=== PATIENT | female | born 1980 | race American Indian/Alaskan Native ===

== ENCOUNTER 2019-11-26 23:48 | Inpatient (IN) | payer MEDICAID, OTHER ==
--- NOTE | 2019-11-27 00:39 | Emergency Department Report ---
ED Neuro Deficit HPI - General Chief Complaint: Dizziness Stated Complaint: HEADACHE, DIZZY, ELEVATED BLOOD PRESSURE Time Seen by Provider: 11/26/19 23:53 Source: EMS Mode of arrival: Ambulatory Limitations: No Limitations - History of Present Illness Initial Comments: [facility] Date of Service: 11/27/2019 00:07:03 Impression: RO Acute Ischemic Stroke Right Hemispheric Infarct Comments: The patient has a markedly elevated blood pressure with ISIDRO and left sided numbness hypertensive emergency vs cva/tia. Has some CP also on the side. her symptoms have been present for over 24 hours in terms of last known normal so she is not a candidate for any sort of acute intervention but certainly needs admission for stroke workup and neurology consultation. Mechanism of Stroke: Small Vessel Disease Not Clear Metrics: Last Known Well: 11/25/2019 23:00:00 [facility] Notification Time: 11/27/2019 00:06:16 Arrival Time: 11/27/2019 23:48:00 Stamp Time: 11/27/2019 00:07:03 Time First Login Attempt: 11/27/2019 00:09:15 Video Start Time: 11/27/2019 00:09:15 Symptoms: left sided numbness NIHSS Start Assessment Time: 11/27/2019 00:19:53 Patient is not a candidate for tPA. Patient was not deemed candidate for tPA thrombolytics because of Last Well Known Above 4.5 Hours. Video End Time: 11/27/2019 00:33:57 CT head showed no acute hemorrhage or acute core infarct. Advanced imaging was not obtained as the presentation was not suggestive of Large Vessel Occlusive Disease. ER Physician notified of the decision on thrombolytics management on 11/27/2019 00:31:37 Our recommendations are outlined below. Recommendations: Activate Stroke Protocol Admission/Order Set Stroke/Telemetry Floor Neuro Checks Bedside Swallow Eval DVT Prophylaxis IV Fluids, Normal Saline Head of Bed Below 30 Degrees Euglycemia and Avoid Hyperthermia (PRN Acetaminophen) Initiate Aspirin 325 MG Daily Recommended Scan: MRI Head MRA Head Without Contrast Carotid Dopplers Echocardiogram - Transthoracic Echocardiogram Lipid Panel to Be Obtained, if Not Done in the Last Three Months Therapies: Physical Therapy, Occupational Therapy, Speech Therapy Assessment When Applicable Dysphaghia Screen: Swallow Evaluation, Bedside NPO Until Swallow Evaluation DVT prophylaxis: Choice of Primary Team Disposition: Follow up with Teleneurology Follow up Sign Out: Discussed with Emergency Department Provider History of Present Illness: Patient is a 39 year old Female. Patient was brought by EMS for symptoms of left sided numbness She even when she wokr up this am she felt like she was numb on the left side also. That was at 06:30 am. She went to bed at 23:00 without any of that. She said her left side was numb with HTN. Also has DM. Had a ISIDRO. Earlier in the day she had a ISIDRO. She said she stood up at [employer] and felt like everything went black for a min no LOC/dazed. At 18:30 the ISIDRO intensified with fatigue. She had some memory issues/foggy thinking around 10am to11am. She was having to make people repeat herself. She also said he fell several times on thanksgiving then also a week or two ago. CT head showed no acute hemorrhage or acute core infarct. Last seen normal was within 4.5 hours. There is no history of hemorrhagic complications or intracranial hemorrhage. There is no history of Recent Anticoagulants. There is no history of recent major surgery. There is no history of recent stroke. Examination: 1A: Level of Consciousness - Alert; keenly responsive + 0 1B: Ask Month and Age - Both Questions Right + 0 1C: Blink Eyes & Squeeze Hands - Performs Both Tasks + 0 2: Test Horizontal Extraocular Movements - Normal + 0 3: Test Visual Oh - No Visual Loss + 0 4: Test Facial Palsy (Use Grimace if Obtunded) - Normal symmetry + 0 5A: Test Left Arm Motor Drift - Drift, but doesn't hit bed + 1 5B: Test Right Arm Motor Drift - No Drift for 10 Seconds + 0 6A: Test Left Leg Motor Drift - No Drift for 5 Seconds + 0 6B: Test Right Leg Motor Drift - No Drift for 5 Seconds + 0 7: Test Limb Ataxia (FNF/Heel-Borges) - No Ataxia + 0 8: Test Sensation - Mild-Moderate Loss: Less Sharp/More Dull + 1 9: Test Language/Aphasia - Normal; No aphasia + 0 10: Test Dysarthria - Normal + 0 11: Test Extinction/Inattention - No abnormality + 0 NIHSS Score: 2 Patient was informed the Neurology Consult would happen via TeleHealth consult by way of interactive audio and video telecommunications and consented to receiving care in this manner. Due to the immediate potential for life-threatening deterioration due to underlying acute neurologic illness, I spent 35 minutes providing critical care. This time includes time for face to face visit via telemedicine, review of medical records, imaging studies and discussion of findings with providers, the patient and/or family. Dr Marlen Miles - Related Data Home Medications: Home Medications Medication Instructions Recorded Confirmed Last Taken Empagliflozin (Nf) [Jardiance] 10 mg PO QDAY 02/05/16 02/05/16 Unknown amLODIPine 15 mg PO DAILY 02/05/16 02/05/16 Unknown Previous Rx's Medication Instructions Recorded Last Taken Type hydroCHLOROthiazide [HCTZ] 12.5 mg PO QDAY #30 capsule 02/05/16 Unknown Rx Allergies/Adverse Reactions: Allergies Allergy/AdvReac Type Severity Reaction Status Date / Time morphine Allergy Dizziness Verified 11/10/15 15:08 ED Review of Systems ROS: Stated complaint: HEADACHE, DIZZY, ELEVATED BLOOD PRESSURE Other details as noted in HPI ED Past Medical Hx - Past Medical History Previous Medical History?: Yes Hx Hypertension: Yes Hx Diabetes: Yes - Surgical History Past Surgical History?: No - Social History Smoking Status: Never Smoker Substance Use Type: None - Medications Home Medications: Home Medications Medication Instructions Recorded Confirmed Last Taken Type Empagliflozin (Nf) [Jardiance] 10 mg PO QDAY 02/05/16 02/05/16 Unknown History amLODIPine 15 mg PO DAILY 02/05/16 02/05/16 Unknown History hydroCHLOROthiazide [HCTZ] 12.5 mg PO QDAY #30 capsule 02/05/16 Unknown Rx ED Neuro Physical Exam - General Limitations: No Limitations Suspected Stroke: Yes - NIHSS Assessment Interval: Baseline 1a. Level of Consciousness: alert/keenly responsive 1b. LOC Questions: answers both correctly 1c. LOC Commands: performs tasks correctly 2. Best Gaze: normal 3. Visual: no visual loss 4. Facial Palsy: normal symmetrical movement 5b. Motor Arm Right: no drift 5a. Motor Arm Left: drift 6a. Motor Leg Left: no drift 6b. Motor Leg Right: no drift 7. Limb Ataxia: absent 8. Sensory: mild/moderate sensory loss 9. Best Language: no aphasia 10. Dysarthria: normal 11. Extinction/Inattention: no abnormality Total Score: 2 Stroke Severity: Minor Stroke ED Course Vital Signs 11/26/19 23:50 Temperature 97.9 F Pulse Rate 75 Respiratory 18 Rate Blood Pressure 177/94 O2 Sat by Pulse 100 Oximetry Critical care attestation.: If time is entered above; I have spent that time in minutes in the direct care of this critically ill patient, excluding procedure time. ED Disposition Clinical Impression: Stroke (cerebrum) Qualifiers: CVA mechanism: unspecified Qualified Code(s): I63.9 - Cerebral infarction, unspecified Disposition: DC-09 OP ADMIT IP TO THIS HOSP Is pt being admited?: Yes Condition: Stable
--- NOTE | 2019-11-27 00:45 | Cat Scan Report ---
CT head/brain wo con INDICATION: Stroke symptoms. TECHNIQUE: All CT scans at this location are performed using CT dose reduction for ALARA by means of automated e xposure control. COMPARISON: None available. FINDINGS: Paranasal and mastoid sinuses are clear. Ventricles are symmetrical and normal in size. No mass, hemo rrhage or other significant abnormality. IMPRESSION: 1. No significant abnormality. Signer Name: Armando Burns MD Signed: 11/27/2019 12:41 AM Workstation Name: [id number]
[2019-11-27] MEDS ORDERED: ASPIRIN 325 MG TAB PO ONE (00:52)
--- NOTE | 2019-11-27 00:53 | Emergency Department Report ---
ED Neuro Deficit HPI - General Chief Complaint: Dizziness Stated Complaint: HEADACHE, DIZZY, ELEVATED BLOOD PRESSURE Time Seen by Provider: 11/26/19 23:53 Source: EMS Mode of arrival: Ambulatory Limitations: No Limitations - History of Present Illness Initial Comments: 39-year-old female, history of hypertension and diabetes, presents to the ED with headache, dizziness. Patient states her headache is located in the occipital area. States it has been ongoing "for a while." States she was seen at outside hospital for elevated blood pressure approximately 1 month ago but has been unable to fill her losartan. Today, patient reports her left arm and leg have felt heavy since around 6 AM this morning. States when she went to bed last night she felt normal. Tonight, patient was in [employer], states she stood up to greet the other rastaf[employer] members began to feel dizzy and lightheaded as if she was going to pass out. Patient reports numbness and tingling in addition to a heaviness in the left arm and left leg. -: This morning Location: left arm, left leg History of same: No Severity: mild Quality: weak, numb, tingling Improves With: none Worsens With: none On Anticoagulants: No Associated Symptoms: headaches. denies: chest pain, fever/chills, nausea/vomiting, shortness of breath Treatments Prior to Arrival: none - Related Data Home Medications: Home Medications Medication Instructions Recorded Confirmed Last Taken Empagliflozin (Nf) [Jardiance] 10 mg PO QDAY 02/05/16 02/05/16 Unknown amLODIPine 15 mg PO DAILY 02/05/16 02/05/16 Unknown Previous Rx's Medication Instructions Recorded Last Taken Type hydroCHLOROthiazide [HCTZ] 12.5 mg PO QDAY #30 capsule 02/05/16 Unknown Rx Allergies/Adverse Reactions: Allergies Allergy/AdvReac Type Severity Reaction Status Date / Time morphine Allergy Dizziness Verified 11/10/15 15:08 ED Review of Systems ROS: Stated complaint: HEADACHE, DIZZY, ELEVATED BLOOD PRESSURE Other details as noted in HPI Comment: All other systems reviewed and negative Eyes: other (reports blurred vision) Respiratory: denies: shortness of breath Cardiovascular: denies: chest pain Gastrointestinal: denies: nausea, vomiting Neurological: headache, weakness, paresthesias ED Past Medical Hx - Past Medical History Previous Medical History?: Yes Hx Hypertension: Yes Hx Diabetes: Yes - Surgical History Past Surgical History?: No - Social History Smoking Status: Never Smoker Substance Use Type: None - Medications Home Medications: Home Medications Medication Instructions Recorded Confirmed Last Taken Type Empagliflozin (Nf) [Jardiance] 10 mg PO QDAY 02/05/16 02/05/16 Unknown History amLODIPine 15 mg PO DAILY 02/05/16 02/05/16 Unknown History hydroCHLOROthiazide [HCTZ] 12.5 mg PO QDAY #30 capsule 02/05/16 Unknown Rx ED Neuro Physical Exam - General Limitations: No Limitations General appearance: alert, in no apparent distress, obese Suspected Stroke: Yes - Head Head exam: Present: atraumatic, normocephalic - Eye Eye exam: Present: normal appearance, PERRL, EOMI - ENT ENT exam: Present: mucous membranes moist - Neck Neck exam: Present: normal inspection, full ROM. Absent: meningismus - Respiratory Respiratory exam: Present: normal lung sounds bilaterally. Absent: respiratory distress - Cardiovascular Cardiovascular Exam: Present: regular rate, normal rhythm - GI/Abdominal GI/Abdominal exam: Present: soft. Absent: distended, tenderness - Extremities Exam Extremities exam: Present: normal inspection - Neurological Exam Neurological exam: Present: alert, oriented X3 - NIHSS Assessment Interval: Baseline 1a. Level of Consciousness: alert/keenly responsive 1b. LOC Questions: answers both correctly 1c. LOC Commands: performs tasks correctly 2. Best Gaze: normal 3. Visual: no visual loss 4. Facial Palsy: normal symmetrical movement 5b. Motor Arm Right: no drift 5a. Motor Arm Left: drift 6a. Motor Leg Left: no drift 6b. Motor Leg Right: no drift 7. Limb Ataxia: absent 8. Sensory: mild/moderate sensory loss 9. Best Language: no aphasia 10. Dysarthria: normal 11. Extinction/Inattention: no abnormality Total Score: 2 Stroke Severity: Minor Stroke - Psychiatric Psychiatric exam: Present: normal affect, normal mood - Skin Skin exam: Present: warm, dry, intact, normal color ED Course Vital Signs 11/26/19 23:50 Temperature 97.9 F Pulse Rate 75 Respiratory 18 Rate Blood Pressure 177/94 O2 Sat by Pulse 100 Oximetry - Lab Data Result diagrams: 11/27/19 00:40 11/27/19 00:40 Lab Results 11/27/19 11/27/19 11/27/19 Range/Units 00:40 00:40 00:40 WBC 7.3 (4.5-11.0) K/mm3 RBC 4.80 (3.65-5.03) M/mm3 Hgb 10.2 (10.1-14.3) gm/dl Hct 33.0 (30.3-42.9) % MCV 69 L (79-97) fl MCH 21 L (28-32) pg MCHC 31 (30-34) % RDW 18.2 H (13.2-15.2) % Plt Count 285 (140-440) K/mm3 Lymph % (Auto) 34.1 (13.4-35.0) % [place] % (Auto) 9.0 H (0.0-7.3) % Eos % (Auto) 0.6 (0.0-4.3) % Baso % (Auto) 0.8 (0.0-1.8) % Lymph # 2.5 (1.2-5.4) K/mm3 [place] # 0.7 (0.0-0.8) K/mm3 Eos # 0.0 (0.0-0.4) K/mm3 Baso # 0.1 (0.0-0.1) K/mm3 Seg Neutrophils % 55.5 (40.0-70.0) % Seg Neutrophils # 4.1 (1.8-7.7) K/mm3 PT 12.6 (12.2-14.9) Sec. INR 0.93 (0.87-1.13) APTT 30.3 (24.2-36.6) Sec. Thrombin Time 14.6 L (15.1-19.6) Sec. Sodium 137 (137-145) mmol/L Potassium 3.6 (3.6-5.0) mmol/L Chloride 103.8 (98-107) mmol/L Carbon Dioxide 20 L (22-30) mmol/L Anion Gap 17 mmol/L BUN 14 (7-17) mg/dL Creatinine 0.7 (0.7-1.2) mg/dL Estimated GFR > 60 ml/min BUN/Creatinine Ratio 20 % Glucose 139 H (65-100) mg/dL POC Glucose (70-105) Calcium 9.2 (8.4-10.2) mg/dL Total Creatine Kinase 266 H (30-135) units/L CK-MB (CK-2) 1.6 (0.0-4.0) ng/mL CK-MB (CK-2) Rel Index 0.6 (0-4) Troponin T < 0.010 (0.00-0.029) ng/mL 11/27/19 Range/Units 00:47 WBC (4.5-11.0) K/mm3 RBC (3.65-5.03) M/mm3 Hgb (10.1-14.3) gm/dl Hct (30.3-42.9) % MCV (79-97) fl MCH (28-32) pg MCHC (30-34) % RDW (13.2-15.2) % Plt Count (140-440) K/mm3 Lymph % (Auto) (13.4-35.0) % [place] % (Auto) (0.0-7.3) % Eos % (Auto) (0.0-4.3) % Baso % (Auto) (0.0-1.8) % Lymph # (1.2-5.4) K/mm3 [place] # (0.0-0.8) K/mm3 Eos # (0.0-0.4) K/mm3 Baso # (0.0-0.1) K/mm3 Seg Neutrophils % (40.0-70.0) % Seg Neutrophils # (1.8-7.7) K/mm3 PT (12.2-14.9) Sec. INR (0.87-1.13) APTT (24.2-36.6) Sec. Thrombin Time (15.1-19.6) Sec. Sodium (137-145) mmol/L Potassium (3.6-5.0) mmol/L Chloride (98-107) mmol/L Carbon Dioxide (22-30) mmol/L Anion Gap mmol/L BUN (7-17) mg/dL Creatinine (0.7-1.2) mg/dL Estimated GFR ml/min BUN/Creatinine Ratio % Glucose (65-100) mg/dL POC Glucose 128 H (70-105) Calcium (8.4-10.2) mg/dL Total Creatine Kinase (30-135) units/L CK-MB (CK-2) (0.0-4.0) ng/mL CK-MB (CK-2) Rel Index (0-4) Troponin T (0.00-0.029) ng/mL - EKG Data -: EKG Interpreted by Me EKG shows normal: sinus rhythm, axis, intervals, QRS complexes, ST-T waves Rate: normal Interpretation: no acute changes - Radiology Data Radiology results: report reviewed, image reviewed - Medical Decision Making 39 yo F w/ uncontrolled HTN, ISIDRO, left sided "heaviness." CT Head negative. Pt seen and evaluated by teleneurologist. Symptoms onset >24 hrs ago. Not a candidate for tPA or neurointervention. Neurologist advises keeping SBP 180-190 at this time. Will admit to hospitalist for stroke workup. - Differential Diagnosis hemorrhagic CVA, ischemic CVA, complex migraine Critical care attestation.: If time is entered above; I have spent that time in minutes in the direct care of this critically ill patient, excluding procedure time. ED Disposition Clinical Impression: Uncontrolled hypertension Stroke (cerebrum) Qualifiers: CVA mechanism: unspecified Qualified Code(s): I63.9 - Cerebral infarction, unspecified Disposition: -09 OP ADMIT IP TO THIS HOSP Is pt being admited?: Yes Condition: Stable Instructions: Hypertension (ED) Referrals: PRIMARY CARE, [Primary Care Provider] - 3-5 Days Time of Disposition: 01:35
[2019-11-27 00:58] LABS: Basophils # (Auto) 0.1 K/mm3 (0.0-0.1); Basophils % (Auto) 0.8 % (0.0-1.8); Eosinophils % (Auto) 0.6 % (0.0-4.3); Hemoglobin 10.2 gm/dl (10.1-14.3); Lymphocytes # (Auto) 2.5 K/mm3 (1.2-5.4); Lymphocytes % (Auto) 34.1 % (13.4-35.0); Mean Corpuscular HGB Conc 31 % (30-34); Mean Corpuscular Volume 69 fl (79-97); Monocytes # (Auto) 0.7 K/mm3 (0.0-0.8); Platelet Count 285 K/mm3 (140-440); Red Cell Distribution Width 18.2 % (13.2-15.2)
[2019-11-27 01:01] LABS: INR 0.93 (0.87-1.13)
[2019-11-27 01:02] LABS: Partial Thromboplastin Time 30.3 Sec. (24.2-36.6); Thrombin Time 14.6 Sec. (15.1-19.6)
[2019-11-27 01:06] LABS: Creatine Kinase MB 1.6 ng/mL (0.0-4.0)
[2019-11-27 01:07] LABS: BUN/Creatinine Ratio 20; Blood Urea Nitrogen 14 mg/dL (7-17); Calcium 9.2 mg/dL (8.4-10.2); Hemolysis Index 0
[2019-11-27] MEDS: hydrALAZINE 20 MG/1 ML INJ IV PRN ×2 (02:30→05:55)
[2019-11-27] MEDS ORDERED: hydrALAZINE 20 MG/1 ML INJ ONE (05:53)
[2019-11-27] MEDS ORDERED: ACETAMINOPHEN 325 MG TAB PO PRN (06:29)
--- NOTE | 2019-11-27 07:26 | History and Physical Report ---
History of Present Illness Date of examination: 11/27/19 Date of admission: 11/27/19 02:11 Chief complaint: Headaches History of present illness: Patient is a 39-year-old woman with a history of hypertension, DM type 2 and migraines headaches who presents to [facility] ED with severe frontal constant throbbing non radiating headache associated with n/v and flashes of light and left arm heaviness that started 1 day prior to arrival. She went to [facility] service and developed headaches, dizziness, AMS with memory issues and being foggy thinking. She believes it is a typical migraine headaches and she ran out her typical Loricet that started from [facility] ED 3 weeks ago. It appears no pharmacy have the Loricet. Also she has ran out of her bp medications for approximately 1 month ago but has been unable to fill her losartan because she has no insurance anymore. She is still taking metformin 1000 mg po bid. She denies trauma, chest pains, sob, new cough, syncope, fever, chills. The is not the worse headache of her lift and her neck is NOT stiff. PMH: as hpi PSH: tonsillectomy, gallbladder removed, tubal ligation, x 3 SH: no tob, no alcholol or illicit drug use FH: mother had hypertension and stroke, father with DM ROS: Constitutional: denies: fever ENT: denies: throat or neck pain Respiratory: denies: cough, shortness of breath Cardiovascular: denies: chest pain Endocrine: denies unexplained weight loss or gain Gastrointestinal: denies: abdominal pain, nausea Genitourinary: denies: dysuria Rectal: denies no incontinence, no bleeding, no itching, no discharge Musculoskeletal: denies swelling, myaglia, + left sided muscle weakness Skin: denies: rash Neurological: +headache Hematological/Lymphatic: denies: easy bleeding or easy bruising Allergic/Immunologic: no urticaria, no allergic rhinitis, no anaphylaxis Psych: denies sadness or hopelessness, SI/HI Medications and Allergies Allergies Allergy/AdvReac Type Severity Reaction Status Date / Time morphine Allergy Dizziness Verified 11/10/15 15:08 Home Medications Medication Instructions Recorded Confirmed Last Taken Type Empagliflozin (Nf) [Jardiance] 10 mg PO QDAY 02/05/16 02/05/16 Unknown History amLODIPine 15 mg PO DAILY 02/05/16 02/05/16 Unknown History hydroCHLOROthiazide [HCTZ] 12.5 mg PO QDAY #30 capsule 02/05/16 Unknown Rx Active Meds: Active Medications Acetaminophen (Tylenol) 650 mg PO Q4H PRN PRN Reason: headache Last Admin: 11/27/19 06:41 Dose: 650 mg Documented by: Hydralazine HCl (Apresoline) 5 mg IV Q6H PRN PRN Reason: Hypertension Last Admin: 11/27/19 05:55 Dose: 5 mg Documented by: Exam - Physical Exam Narrative exam: Gen: morbid obese bmi 47.0, ill appearing with towel on forehead, leaning over trash can with Sour path candy and Nithya orange drink on her bed WDWN, NAD, Awake, Alert, Orientated x 3 HEENT: NCAT, EOMI, PERRL, OP Clear Neck: supple, no adenopathy, no thyromegaly, no JVD CVS/Heart: RRR, normal S1S2, pulses present bilaterally Chest/Lungs: tachypenic, CTA B, Symmetrical chest expansion, good air entry bilaterally GI/Abdomen: soft, NTND, good bowel sounds, no guarding or rebound /Bladder: no suprapubic tenderness, no CVA or paraspinal tenderness Extermity/Skin: no c/c/e, no obvious rash MSK: FROM x 4 Neuro: CN 2-12 grossly intact, new focal deficits, no drift Psych: calm - Constitutional Vitals: Temp Pulse Resp BP Pulse Ox 97.9 F 75 23 169/55 98 11/26/19 23:50 11/27/19 05:55 11/27/19 03:31 11/27/19 06:10 11/27/19 03:31 Results - Labs CBC & Chem 7: 11/27/19 00:40 11/27/19 00:40 Labs: Laboratory Last Values WBC 7.3 K/mm3 (4.5-11.0) 11/27/19 00:40 RBC 4.80 M/mm3 (3.65-5.03) 11/27/19 00:40 Hgb 10.2 gm/dl (10.1-14.3) 11/27/19 00:40 Hct 33.0 % (30.3-42.9) 11/27/19 00:40 MCV 69 fl (79-97) L 11/27/19 00:40 MCH 21 pg (28-32) L 11/27/19 00:40 MCHC 31 % (30-34) 11/27/19 00:40 RDW 18.2 % (13.2-15.2) H 11/27/19 00:40 Plt Count 285 K/mm3 (140-440) 11/27/19 00:40 Lymph % (Auto) 34.1 % (13.4-35.0) 11/27/19 00:40 [place] % (Auto) 9.0 % (0.0-7.3) H 11/27/19 00:40 Eos % (Auto) 0.6 % (0.0-4.3) 11/27/19 00:40 Baso % (Auto) 0.8 % (0.0-1.8) 11/27/19 00:40 Lymph # 2.5 K/mm3 (1.2-5.4) 11/27/19 00:40 [place] # 0.7 K/mm3 (0.0-0.8) 11/27/19 00:40 Eos # 0.0 K/mm3 (0.0-0.4) 11/27/19 00:40 Baso # 0.1 K/mm3 (0.0-0.1) 11/27/19 00:40 Seg Neutrophils % 55.5 % (40.0-70.0) 11/27/19 00:40 Seg Neutrophils # 4.1 K/mm3 (1.8-7.7) 11/27/19 00:40 PT 12.6 Sec. (12.2-14.9) 11/27/19 00:40 INR 0.93 (0.87-1.13) 11/27/19 00:40 APTT 30.3 Sec. (24.2-36.6) 11/27/19 00:40 Thrombin Time 14.6 Sec. (15.1-19.6) L 11/27/19 00:40 Sodium 137 mmol/L (137-145) 11/27/19 00:40 Potassium 3.6 mmol/L (3.6-5.0) 11/27/19 00:40 Chloride 103.8 mmol/L (98-107) 11/27/19 00:40 Carbon Dioxide 20 mmol/L (22-30) L 11/27/19 00:40 Anion Gap 17 mmol/L 11/27/19 00:40 BUN 14 mg/dL (7-17) 11/27/19 00:40 Creatinine 0.7 mg/dL (0.7-1.2) 11/27/19 00:40 Estimated GFR > 60 ml/min 11/27/19 00:40 BUN/Creatinine Ratio 20 % 11/27/19 00:40 Glucose 139 mg/dL (65-100) H 11/27/19 00:40 POC Glucose 128 (70-105) H 11/27/19 00:47 Calcium 9.2 mg/dL (8.4-10.2) 11/27/19 00:40 Total Creatine Kinase 266 units/L (30-135) H 11/27/19 00:40 CK-MB (CK-2) 1.6 ng/mL (0.0-4.0) 11/27/19 00:40 CK-MB (CK-2) Rel Index 0.6 (0-4) 11/27/19 00:40 Troponin T < 0.010 ng/mL (0.00-0.029) 11/27/19 00:40 HCG, Quant < 2 mIU/mL (0-4) 11/27/19 01:45 Assessment and Plan Assessment and plan: Patient is a 39-year-old woman with a history of hypertension, DM type 2 and migraines headaches who presents to [facility] ED with severe frontal constant throbbing non radiating headache associated with n/v and flashes of light and left arm heaviness that started 1 day prior to arrival. She went to [facility] service and developed headaches, dizziness, AMS with memory issues and being foggy thinking. She believes it is a typical migraine headaches and she ran out her typical Loricet that started from [facility] ED 3 weeks ago. It appears no pharmacy have the Loricet. Also she has ran out of her bp medications for approximately 1 month ago but has been unable to fill her losartan because she has no insurance anymore. She is still taking metformin 1000 mg po bid. She denies trauma, chest pains, sob, new cough, syncope, fever, chills. The is not the worse headache of her lift and her neck is NOT stiff. * CT head without contrast without acute findings Headaches, most likely Migraine related, possibly Status migrainous: treat symptomatically, NSAIDs with toradol iv x 1 Left arm weakness, she believes she slept on it wrong vs TIA vs hypertension re lated vs other: mri, echo, us carotid, mra head, treat with asa and statin Malignant hypertension; benefits counselor on compliance, restart antihypertensives, ECHO ordered, iv hydralazine prn Acute metabolic encephalopathy as above, workup on going Morbid Obesity, bmi 47: benefits counselor on compliance Type 2 DM: ssi, ada diet, restart metformin DVT ppx: sq heparin
[2019-11-27] MEDS ORDERED: ONDANSETRON 4 MG/2 ML INJ IV PRN (07:28)
[2019-11-27] MEDS ORDERED: hydrALAZINE 20 MG/1 ML INJ IV PRN (07:32)
[2019-11-27] MEDS ORDERED: hydroCHLOROthiazide 12.5 MG CAP PO SCH (10:00)
[2019-11-27] MEDS ORDERED: POLYETHYLENE GLYCOL 3350 17 GM POWDER PO PRN (10:00)
[2019-11-27] MEDS ORDERED: amLODIPine 10 MG TAB PO SCH (10:00)
[2019-11-27] MEDS ORDERED: MELATONIN 5 MG TAB PO PRN (10:15)
[2019-11-27] MEDS ORDERED: KETOROLAC 30 MG/1 ML INJ IV ONE (10:17)
[2019-11-27] MEDS ORDERED: DEXTROSE 50% IN WATER (25GM) 50 ML SYRINGE IV PRN (10:19)
[2019-11-27] MEDS: INSULIN LISPRO 100 UNIT/ML SUB-Q SCH ×3 (11:30→23:10)
[2019-11-27] MEDS: METOCLOPRAMIDE 10 MG/10 ML ORAL LIQD PO SCH ×3 (11:30→21:54)
[2019-11-27] MEDS: METOCLOPRAMIDE 10 MG/2 ML INJ IV PRN (11:31)
[2019-11-27] MEDS: FAMOTIDINE 20 MG TAB PO SCH ×2 (11:34→21:54)
[2019-11-27] MEDS: BUTALB/ACETAMINOPHEN/CAFFEINE TAB PO PRN (17:42)
[2019-11-27] MEDS: metFORMIN 500 MG TAB PO SCH (17:43)
--- NOTE | 2019-11-27 18:51 | Consultation ---
History of Present Illness Consult date: 11/27/19 Reason for Consult: left sided weakness/numbness, headache Chief complaint: left sided weakness/numbness, headache History of present illness: Patient is a 39 woman with a history of hypertension, diabetes, migraines. Yesterday morning when she woke up and around 6 AM, the patient noted that she was experiencing a headache, as well as left-sided paresthesias of the face, arm, leg, as well as left-sided weakness. She was also extrinsic dizziness at this time. She went throughout the day with the symptoms, and while at [employer] in the evening, she noted that she was having increased dizziness when standing up and having difficulty concentrating. She then came to [facility] for further evaluation. Patient states that she had run out of her antihypertensive medications about 1 month ago, and was unable to get them refilled as no pharmacy she went to had the medication available. She however was able to get metformin. She states that her usual migraines are described as one-sided, throbbing, 8-9 out of 10, associated with phonophobia and photophobia, and she has visual auras preceding migraines. On presentation to the ER, the patient was found to have elevated blood pressure. She states that today her headaches have improved significantly, however she continues to experience left-sided paresthesias and weakness. Past History Past Medical History: other (HTN, DM, migraines) Social history: no significant social history Family history: no significant family history Medications and Allergies Allergies Allergy/AdvReac Type Severity Reaction Status Date / Time morphine Allergy Dizziness Verified 11/10/15 15:08 Home Medications Medication Instructions Recorded Confirmed Last Taken Type Empagliflozin (Nf) [Jardiance] 10 mg PO QDAY 02/05/16 11/27/19 Unknown History amLODIPine 15 mg PO DAILY 02/05/16 11/27/19 Unknown History hydroCHLOROthiazide [HCTZ] 12.5 mg PO QDAY #30 capsule 02/05/16 11/27/19 Unknown Rx Active Meds: Active Medications Acetaminophen (Tylenol) 650 mg PO Q4H PRN PRN Reason: headache Last Admin: 11/27/19 06:41 Dose: 650 mg Documented by: Acetaminophen/Butalbital/Caffeine (Fioricet) 2 tab PO Q4H PRN PRN Reason: Headache Last Admin: 11/27/19 17:42 Dose: 2 tab Documented by: Acetaminophen/Hydrocodone Bitart ([place] 10/325) 1 each PO Q4H PRN PRN Reason: Pain , Severe (7-10) Aspirin (Aspirin) 325 mg PO QDAY [facility] Atorvastatin Calcium (Lipitor) 40 mg PO QHS [facility] Dextrose (D50w (25gm) Syringe) 50 ml IV Q30MIN PRN; Protocol PRN Reason: Hypoglycemia Famotidine (Pepcid) 20 mg PO BID [facility] Last Admin: 11/27/19 11:34 Dose: Not Given Documented by: Heparin Sodium (Porcine) (Heparin) 5,000 unit SUB-Q Q12HR [facility] Hydralazine HCl (Apresoline) 10 mg IV Q4HR PRN PRN Reason: Blood Pressure Insulin Human Lispro (Humalog) 0 unit SUB-Q [facility]; Protocol Last Admin: 11/27/19 18:23 Dose: Not Given Documented by: Melatonin (Melatonin) 10 mg PO QHS PRN PRN Reason: Sleep Metformin HCl (Glucophage) 1,000 mg PO BIDDIAB [facility] Last Admin: 11/27/19 17:43 Dose: 1,000 mg Documented by: Metoclopramide HCl (Reglan) 10 mg IV Q8H PRN PRN Reason: Nausea And Vomiting Last Admin: 11/27/19 11:31 Dose: 10 mg Documented by: Metoclopramide HCl (Reglan) 10 mg PO [facility] Last Admin: 11/27/19 17:46 Dose: 10 mg Documented by: Ondansetron HCl (Zofran) 4 mg IV Q8H PRN PRN Reason: N/V unrelieved by Reglan Last Admin: 11/27/19 07:52 Dose: 4 mg Documented by: Polyethylene Glycol (Miralax [id number]) 17 gm PO QDAY PRN PRN Reason: Constipation Sodium Chloride (Sodium Chloride Flush Syringe 10 Ml) 10 ml IV PRN PRN PRN Reason: LINE FLUSH Review of Systems All systems: negative Neurological: weakness, parathesias, other (dizziness) Physical Examination - Vital Signs Vital Signs: Vital Signs Temp Pulse Resp BP Pulse Ox 97.9 F 75 18 177/94 100 11/26/19 23:50 11/26/19 23:50 11/26/19 23:50 11/26/19 23:50 11/26/19 23:50 - Physical Exam Narrative exam: Patient is awake, alert, oriented 4, follows complex commands. No dysarthria or aphasia noted. PERRL, EOMI, VFF, no facial weakness noted, decreased on left to LT, tongue midline. Noted to have 4/5 strength in LUE/LLE, 5.5 in LUE/LLE. Decreased on LUE/LLE to LT. Bilaterally intact to finger to nose and heel to kendrick. 2+ reflexes throughout. - Constitutional General appearance: comfortable - EENT EENT: Present: ATNC, PERRL, mucous membranes moist, hearing intact, vision intact - Respiratory Respiratory: Present: lungs clear, normal breath sounds - Cardiovascular Cardiovascular: Present: regular rate, normal S1, normal S2 Extremities: Present: no clubbing, cyanosis, no inflammation - Gastrointestinal Gastrointestinal: Present: normoactive bowel sounds, soft, non-tender - Integumentary Integumentary: Present: normal - Musculoskeletal Musculoskeletal: Present: no fluid collection, no pain - Psychiatric Psychiatric: Present: mood/affect appropriate - Level of Consciousness 1a. Level of Consciousness: alert/keenly responsive - LOC Questions 1b. LOC Questions: answers both correctly - LOC Command 1c. LOC Commands: performs tasks correctly - Best Gaze 2. Best Gaze: normal - Visual 3. Visual: no visual loss - Facial Palsy 4. Facial Palsy: normal symmetrical movement - Motor Arm 5a. Motor Arm Left: drift 5b. Motor Arm Right: no drift - Motor Leg 6a. Motor Leg Left: drift 6b. Motor Leg Right: no drift - Limb Ataxia 7. Limb Ataxia: absent - Sensory 8. Sensory: mild/moderate sensory loss - Best Language 9. Best Language: no aphasia - Dysarthria 10. Dysarthria: normal - Extinction and Inattention 11. Extinction/Inattention: no abnormality - Scoring Total Score: 3 Stroke Severity: Minor Stroke Results - Laboratory Findings CBC and BMP: 11/27/19 00:40 11/27/19 00:40 Abnormal Lab Findings: Abnormal Labs 11/27/19 11/27/19 11/27/19 00:40 00:40 00:40 MCV 69 L MCH 21 L RDW 18.2 H [place] % (Auto) 9.0 H Thrombin Time 14.6 L Carbon Dioxide 20 L Glucose 139 H POC Glucose Total Creatine Kinase 266 H 11/27/19 11/27/19 11/27/19 00:47 12:59 16:59 MCV MCH RDW [place] % (Auto) Thrombin Time Carbon Dioxide Glucose POC Glucose 128 H 173 H 148 H Total Creatine Kinase Assessment and Plan Patient is a 39 woman with a history of hypertension, diabetes, migraines, who p/w left sided numbness/weakness, headache, dizziness. According the patient's clinical findings, it is possible the patient has had a stroke, a TIA, or alternatively may have hypertensive emergency. Alternatively, the patient may also had a complicated migraine. Plan: 1. Stroke vs. TIA vs. Hypertensive urgency vs. complicated migraine: - Check MRI head - Check MRA head/neck - Check MRI C-spine. - CT head: no acute abnormality - Cont. ASA for now. - Cont. statin for now - Cont. fioricet for migraine - PT/OT/ST - Echo: pending. - Telemetry monitoring while in house - DVT Ppx: recommend lovenox. 2. Hypertension: - Recommend BP goal of <220/120 to allow for permissive HTN. Target normotension on 11/28/18 - Will continue to follow patient. Thank you for allowing me to take part in the care of this patient. Nitesh Esquivel MD Neurology
[2019-11-28] MEDS: METOCLOPRAMIDE 10 MG/10 ML ORAL LIQD PO SCH ×4 (07:30→21:57)
[2019-11-28] MEDS: INSULIN LISPRO 100 UNIT/ML SUB-Q SCH ×4 (07:30→22:01)
[2019-11-28 08:38] LABS: Chol/HDL Ratio 2.02 %
--- NOTE | 2019-11-28 10:44 | Magnetic Resonance Report ---
MRI BRAIN WITHOUT CONTRAST INDICATION / CLINICAL INFORMATION: Left-sided numbness and weakness.. TECHNIQUE: Multiplanar, multisequence MR images of the brain were obtained. COMPARISON: None available. FINDINGS: BRAIN / INTRACRANIAL CONTENTS: No restricted diffusion to suggest acute infarct. No acute ischemia, a cute hemorrhage, mass effect, midline shift, or hydrocephalus. No chronic infarct or significant atr ophy. No significant demyelinating changes. There is mild expansion of the sella with mild flattening of the superior margin of the pituitary gland. CRANIOCERVICAL JUNCTION: No significant abnormality. VASCULAR FLOW-VOIDS: No significant abnormality. ORBITS: No significant abnormality of visualized orbits. SINUSES / MASTOIDS: No significant abnormality of visualized sinuses and mastoid air cells. ADDITIONAL FINDINGS: None. IMPRESSION: 1. No evidence of acute infarct or other acute intracranial abnormality. 2. Mild chronic expansion of the sella with flattening of the superior margin of the pituitary gland consistent with partially empty sella appearance, which can be associated with idiopathic intracrania l hypertension. Signer Name: Antonio Salguero MD Signed: 11/28/2019 10:39 AM Workstation Name: [id number]
--- NOTE | 2019-11-28 10:48 | Magnetic Resonance Report ---
MRA NECK WITHOUT CONTRAST HISTORY: Left-sided numbness and weakness COMPARISON: None. TECHNIQUE: Routine MRA of the neck is performed. 3-D/MIP reformats postprocessed. Percentage stenosi s is determined by direct quantitative measurements of distal internal carotid artery diameter compar ed with normal reference segments or by criteria similar to NASCET where applicable. CONTRAST: None. FINDINGS: Aortic arch: No significant abnormality. Cervical vertebral arteries: The right vertebral artery is a well-marginated dominant. There is no si gnificant stenosis or occlusion. Common carotid arteries: No significant abnormality. Cervical internal carotid arteries: No significant abnormality. Additional findings: None. IMPRESSION: 1. No significant stenosis or large vessel occlusion identified in the neck arteries. Signer Name: Antonio Salguero MD Signed: 11/28/2019 10:44 AM Workstation Name: [id number]
--- NOTE | 2019-11-28 11:58 | Magnetic Resonance Report ---
MRA HEAD WITHOUT CONTRAST HISTORY: Left-sided numbness and weakness COMPARISON: None. TECHNIQUE: Routine MRA of the head is performed. 3-D/MIP reformats postprocessed. CONTRAST: None. FINDINGS: Intracranial vertebral arteries: Right vertebral artery is the dominant artery. Distal vertebral ancelmo sebastian are normal. Basilar artery: Tortuous; normal lumen; basilar tip are normal Posterior cerebral arteries: Normal both posterior communicating arteries are contributing to posteri or cerebral arteries. Intracranial internal carotid arteries: Normal from skull base to terminus Anterior cerebral arteries: Both A1 segments are normal.; There may be narrowing of the proximal left A2 segment. Middle cerebral arteries: No significant abnormality. Variants and anomalies:None Additional findings: None. IMPRESSION: Questionable narrowing of the proximal left A2 segment Both A1 and M1 segments and posterior cerebral arteries are normal Signer Name: Matt Brandt MD Signed: 11/28/2019 11:54 AM Workstation Name: [id number]
[2019-11-28] MEDS: HEPARIN 5,000 UNIT/1 ML VIAL SUB-Q SCH ×2 (12:08→21:57)
[2019-11-28] MEDS: ASPIRIN 325 MG TAB PO SCH (12:08)
[2019-11-28] MEDS: FAMOTIDINE 20 MG TAB PO SCH ×2 (12:08→21:56)
[2019-11-28] MEDS: metFORMIN 500 MG TAB PO SCH ×2 (12:56→21:56)
--- NOTE | 2019-11-28 14:58 | Progress Note ---
Assessment and Plan Patient is a 39 woman with a history of hypertension, diabetes, migraines, who p/w left sided numbness/weakness, headache, dizziness. According the patient's clinical findings, it is possible the patient has had a TIA, or alternatively may have hypertensive emergency. Alternatively, the patient may also had a complicated migraine. MRI indicative of possible IIH, which would be supported with patient's symptoms of ISIDRO as well as obesity. Plan: 1. Stroke vs. TIA vs. Hypertensive urgency vs. complicated migraine: - MRI brain: no acute abnormality. Showed empty sella sign, indicative of possible idiopathic intracranial hypertension. - MRA head/neck: unremarkable - Check MRI C-spine - Pending - CT head: no acute abnormality - Cont. ASA - Cont. statin - Cont. fioricet for migraine - PT/OT/ST - Echo: EF 45-50%, LA mildly dilated, bubble study negative. - Telemetry monitoring while in house - DVT Ppx: recommend lovenox. 2. Hypertension: - Recommend target normotension. 3. Possible Idiopathic Intracranial Hypertension: - MRI brain showed empty sella sign - Patient has h/o ISIDRO and obesity - Will order LP with opening pressure. If opening pressure elevated, patient may require to be started on diamox. - Will continue to follow patient. Thank you for allowing me to take part in the care of this patient. Nitesh Esquivel MD Neurology Subjective Date of service: 11/28/19 Principal diagnosis: Hypertensive emergency Interval history: Patient c/o mild ISIDRO today. Objective - Exam Narrative Exam: Patient is awake, alert, oriented 4, follows complex commands. No dysarthria or aphasia noted. PERRL, EOMI, VFF, no facial weakness noted, decreased on left to LT, tongue midline. Noted to have 5/5 strength in LUE/LLE, 4/5 in LUE/LLE. Bilaterally intact to LT. Bilaterally intact to finger to nose and heel to kendrick. 2+ reflexes throughout. - Vital Sign Vital Signs - 12hr 11/28/19 11/28/19 05:13 11:58 Temperature 97.9 F 98.0 F Pulse Rate 70 71 Respiratory 18 18 Rate Blood Pressure 170/98 179/98 O2 Sat by Pulse 96 100 Oximetry - General Apperance Constitutional: comfortable - EENT EENT: ATNC, PERRL, mucous membranes moist, hearing intact, vision intact - Respiratory Respiratory: lungs clear, normal breath sounds - Cardiovascular Cardiovascular: regular rate, normal S1, normal S2 Extremities: no clubbing, cyanosis, no inflammation - Gastrointestinal Gastrointestinal: normoactive bowel sounds, soft, non-tender - Integumentary Integumentary: normal - Musculoskeletal Musculoskeletal: no fluid collection, no pain - Psychiatric Psychiatric: mood/affect appropriate - Laboratory Findings CBC and BMP: 11/27/19 00:40 11/27/19 00:40 Abnormal Lab Findings: Abnormal Labs 11/27/19 11/27/19 11/27/19 00:40 00:40 00:40 MCV 69 L MCH 21 L RDW 18.2 H [place] % (Auto) 9.0 H Thrombin Time 14.6 L Carbon Dioxide 20 L Glucose 139 H POC Glucose Hemoglobin A1c Total Creatine Kinase 266 H HDL Cholesterol 11/27/19 11/27/19 11/27/19 00:47 12:59 16:59 MCV MCH RDW [place] % (Auto) Thrombin Time Carbon Dioxide Glucose POC Glucose 128 H 173 H 148 H Hemoglobin A1c Total Creatine Kinase HDL Cholesterol 11/27/19 11/28/19 11/28/19 23:09 07:34 07:34 MCV MCH RDW [place] % (Auto) Thrombin Time Carbon Dioxide Glucose POC Glucose 129 H Hemoglobin A1c 7.1 H Total Creatine Kinase HDL Cholesterol 81 H 11/28/19 11/28/19 07:39 12:51 MCV MCH RDW [place] % (Auto) Thrombin Time Carbon Dioxide Glucose POC Glucose 138 H 118 H Hemoglobin A1c Total Creatine Kinase HDL Cholesterol
[2019-11-28] MEDS: BUTALB/ACETAMINOPHEN/CAFFEINE TAB PO PRN (15:34)
--- NOTE | 2019-11-28 18:45 | Progress Note ---
Assessment and Plan Assessment and plan: Patient is a 39-year-old woman with a history of hypertension, DM type 2 and migraines headaches who presents to [facility] ED with severe frontal constant throbbing non radiating headache associated with n/v and flashes of light and left arm heaviness that started 1 day prior to arrival. She went to [facility] and developed headaches, dizziness, AMS with memory issues and being foggy thinking. She believes it is a typical migraine headaches and she ran out her typical Loricet that started from [facility] ED 3 weeks ago. It appears no pharmacy have the Loricet. Also she has ran out of her bp medications for approximately 1 month ago but has been unable to fill her losartan because she has no insurance anymore. She is still taking metformin 1000 mg po bid. She denies trauma, chest pains, sob, new cough, syncope, fever, chills. The is not the worse headache of her lift and her neck is NOT stiff. * CT head without contrast without acute findings * MRI brain: empty kayley suspected Headaches, Status migrainous vs Pseudotumor Cerebri vs other: treated symptomatically, LP for opening pressure per Neurology Left arm weakness, she believes she slept on it wrong vs TIA vs hypertension related vs other: mri, echo, us carotid, mra head, all reviewed treat with asa and statin Malignant hypertension; college counselor on compliance, restart antihypertensives, ECHO 45-50%==>needs better psychology fellow bp control, iv hydralazine prn Acute metabolic encephalopathy as above, workup on going Morbid Obesity, bmi 47: college counselor on compliance Type 2 DM: ssi, ada diet, restart metformin DVT ppx: sq heparin Dispo:continue inpatient care, LP for opening pressure History Interval history: Patient was seen and examined. Follow-up on current diagnosis ISIDRO which have improved. Overnight uneventful. Patient denies any chest pain, shortness breath, Imaging, nursing note, chart, labs and old chart reviewed. Discussed with patient. Hospitalist Physical - Physical exam Narrative exam: Gen: morbid obese bmi 47.0, ill appearing with towel on forehead, leaning over trash can with Sour path candy and Nithya orange drink on her bed WDWN, NAD, Awake, Alert, Orientated x 3 HEENT: NCAT, EOMI, PERRL, OP Clear Neck: supple, no adenopathy, no thyromegaly, no JVD CVS/Heart: RRR, normal S1S2, pulses present bilaterally Chest/Lungs: tachypenic, CTA B, Symmetrical chest expansion, good air entry bilaterally GI/Abdomen: soft, NTND, good bowel sounds, no guarding or rebound /Bladder: no suprapubic tenderness, no CVA or paraspinal tenderness Extermity/Skin: no c/c/e, no obvious rash MSK: FROM x 4 Neuro: CN 2-12 grossly intact, new focal deficits, no drift Psych: calm - Constitutional Vitals: Temp Pulse Resp BP Pulse Ox 98.0 F 71 20 179/98 100 11/28/19 11:58 11/28/19 11:58 11/28/19 15:34 11/28/19 11:58 11/28/19 11:58 Results - Labs CBC & Chem 7: 11/27/19 00:40 11/27/19 00:40 Labs: Laboratory Last Values WBC 7.3 K/mm3 (4.5-11.0) 11/27/19 00:40 RBC 4.80 M/mm3 (3.65-5.03) 11/27/19 00:40 Hgb 10.2 gm/dl (10.1-14.3) 11/27/19 00:40 Hct 33.0 % (30.3-42.9) 11/27/19 00:40 MCV 69 fl (79-97) L 11/27/19 00:40 MCH 21 pg (28-32) L 11/27/19 00:40 MCHC 31 % (30-34) 11/27/19 00:40 RDW 18.2 % (13.2-15.2) H 11/27/19 00:40 Plt Count 285 K/mm3 (140-440) 11/27/19 00:40 Lymph % (Auto) 34.1 % (13.4-35.0) 11/27/19 00:40 [place] % (Auto) 9.0 % (0.0-7.3) H 11/27/19 00:40 Eos % (Auto) 0.6 % (0.0-4.3) 11/27/19 00:40 Baso % (Auto) 0.8 % (0.0-1.8) 11/27/19 00:40 Lymph # 2.5 K/mm3 (1.2-5.4) 11/27/19 00:40 [place] # 0.7 K/mm3 (0.0-0.8) 11/27/19 00:40 Eos # 0.0 K/mm3 (0.0-0.4) 11/27/19 00:40 Baso # 0.1 K/mm3 (0.0-0.1) 11/27/19 00:40 Seg Neutrophils % 55.5 % (40.0-70.0) 11/27/19 00:40 Seg Neutrophils # 4.1 K/mm3 (1.8-7.7) 11/27/19 00:40 PT 12.6 Sec. (12.2-14.9) 11/27/19 00:40 INR 0.93 (0.87-1.13) 11/27/19 00:40 APTT 30.3 Sec. (24.2-36.6) 11/27/19 00:40 Thrombin Time 14.6 Sec. (15.1-19.6) L 11/27/19 00:40 Sodium 137 mmol/L (137-145) 11/27/19 00:40 Potassium 3.6 mmol/L (3.6-5.0) 11/27/19 00:40 Chloride 103.8 mmol/L (98-107) 11/27/19 00:40 Carbon Dioxide 20 mmol/L (22-30) L 11/27/19 00:40 Anion Gap 17 mmol/L 11/27/19 00:40 BUN 14 mg/dL (7-17) 11/27/19 00:40 Creatinine 0.7 mg/dL (0.7-1.2) 11/27/19 00:40 Estimated GFR > 60 ml/min 11/27/19 00:40 BUN/Creatinine Ratio 20 % 11/27/19 00:40 Glucose 139 mg/dL (65-100) H 11/27/19 00:40 POC Glucose 117 (70-105) H 11/28/19 16:17 Hemoglobin A1c 7.1 % (4-6) H 11/28/19 07:34 Calcium 9.2 mg/dL (8.4-10.2) 11/27/19 00:40 Total Creatine Kinase 266 units/L (30-135) H 11/27/19 00:40 CK-MB (CK-2) 1.6 ng/mL (0.0-4.0) 11/27/19 00:40 CK-MB (CK-2) Rel Index 0.6 (0-4) 11/27/19 00:40 Troponin T < 0.010 ng/mL (0.00-0.029) 11/27/19 00:40 Triglycerides 60 mg/dL (2-149) 11/28/19 07:34 Cholesterol 164 mg/dL (50-199) 11/28/19 07:34 LDL Cholesterol Direct 87 mg/dL (50-130) 11/28/19 07:34 HDL Cholesterol 81 mg/dL (40-59) H 11/28/19 07:34 Cholesterol/HDL Ratio 2.02 % 11/28/19 07:34 HCG, Quant < 2 mIU/mL (0-4) 11/27/19 01:45 Active Medications - Current Medications Current Medications: Generic Name Dose Route Start Last Admin Trade Name Freq PRN Reason Stop Dose Admin Acetaminophen 650 mg 11/27/19 06:29 11/27/19 06:41 Tylenol PO 650 mg Q4H PRN Administration headache Acetaminophen/Butalbital/Caffeine 2 tab 11/27/19 10:16 11/28/19 15:34 Fioricet PO 2 tab Q4H PRN Administration Headache Acetaminophen/Hydrocodone Bitart 1 each 11/27/19 10:16 [place] 10/325 PO Q4H PRN Pain , Severe (7-10) Aspirin 325 mg 11/28/19 10:00 11/28/19 12:08 Aspirin PO 325 mg QDAY VLAIDSLAV Administration Atorvastatin Calcium 40 mg 11/27/19 22:00 11/27/19 21:54 Lipitor PO 40 mg QHS VLADISLAV Administration Dextrose 50 ml 11/27/19 10:19 D50w (25gm) Syringe IV Q30MIN PRN Hypoglycemia Protocol Famotidine 20 mg 11/27/19 10:00 11/28/19 12:08 Pepcid PO 20 mg BID VLADISLAV Administration Heparin Sodium (Porcine) 5,000 unit 11/28/19 10:00 11/28/19 12:08 Heparin SUB-Q 5,000 unit Q12HR VLADISLAV Administration Hydralazine HCl 10 mg 11/27/19 07:32 Apresoline IV Q4HR PRN Blood Pressure Insulin Human Lispro 0 unit 11/27/19 11:30 11/28/19 12:56 Humalog SUB-Q Not Given ACHS VLADISLAV Protocol Melatonin 10 mg 11/27/19 10:15 Melatonin PO QHS PRN Sleep Metformin HCl 1,000 mg 11/27/19 17:00 11/28/19 12:56 Glucophage PO 1,000 mg BIDDIAB VLADISLAV Administration Metoclopramide HCl 10 mg 11/27/19 10:15 11/27/19 11:31 Reglan IV 10 mg Q8H PRN Administration Nausea And Vomiting Metoclopramide HCl 10 mg 11/27/19 11:30 11/28/19 13:02 Reglan PO 10 mg ACHS VLADISLAV Administration Ondansetron HCl 4 mg 11/27/19 07:28 11/27/19 07:52 Zofran IV 4 mg Q8H PRN Administration N/V unrelieved by Reglan Polyethylene Glycol 17 gm 11/27/19 10:00 Miralax 3350 PO QDAY PRN Constipation Sodium Chloride 10 ml 11/27/19 07:28 Sodium Chloride Flush Syringe 10 Ml IV PRN PRN LINE FLUSH Nutrition/Malnutrition Assess - Dietary Evaluation Nutrition/Malnutrition Findings: Nutrition Notes Start: 11/27/19 13:36 Freq: Status: Active Protocol: Document 11/27/19 13:36 YAZMIN (Rec: 11/27/19 13:41 YAZMIN [email or web address]) Nutrition Notes Need for Assessment generated from: MD Order,Education Initial or Follow up Brief Note Other Pertinent Diagnosis (L) sided heaviness, ? CVA Current Diet Cardiac/Consistent CHO Height 5 ft 7 in Weight 136.078 kg [place] Body Weight (kg) 61.36 BMI 47.0 Subjective/Other Information RD consulted for NTR recommendations and diet education. Pt admitted with elevated BP. Nutrition Intervention Follow-Up By: 11/29/19 Additional Comments F/U: PO tolerance, diet education needs
[2019-11-28] MEDS: HYDROcodone/ACETAMINOPHEN 10-325MG TAB PO PRN (21:56)
[2019-11-29] MEDS: HYDROcodone/ACETAMINOPHEN 10-325MG TAB PO PRN ×2 (06:42→10:11)
[2019-11-29] MEDS: METOCLOPRAMIDE 10 MG/10 ML ORAL LIQD PO SCH ×3 (07:30→16:30)
--- NOTE | 2019-11-29 09:32 | Procedure Note ---
Date of procedure: 11/29/19 Pre-op diagnosis: increased intracranial pressure, neuro symptoms Post-op diagnosis: other (normal pressures) Procedure: flouro guided lumbar puncture Anesthesia: local Surgeon: RICK BARRIOS Estimated blood loss: none Pathology: list (4 CSF tubes) Specimen disposition: to lab Condition: stable Disposition: floor
[2019-11-29] MEDS: INSULIN LISPRO 100 UNIT/ML SUB-Q SCH ×3 (10:08→16:30)
[2019-11-29] MEDS: FAMOTIDINE 20 MG TAB PO SCH (10:10)
[2019-11-29 10:15] LABS: Appearance,CSF Clear; Red Blood Cell,CSF 11 /mm3 (0-0); White Blood Cell,CSF 2 /mm3 (1-10)
[2019-11-29 10:18] LABS: Glucose,CSF 82 mg/dL
--- NOTE | 2019-11-29 10:38 | Fluoroscopy Report ---
LUMBAR PUNCTURE INDICATION : Pseudotumor cerebri PROCEDURE: The risks (including but not limited to bleeding, infection, and spinal headache) and kimberlyn efits were explained to the patient and informed consent was obtained. A time out procedure was perf ormed. The procedure site was prepped and draped in the usual sterile fashion and lidocaine was used for local anesthesia. Under fluoroscopic guidance, a 22-gauge spinal needle was advanced into the L2-3 interlaminar space. The opening pressure was 130 mm H2O which was calculated by adding the length of the needle (9 cm) to the height of the CSF column. 4 separate collection tubes were used to obtain 1 cc each. Samples wer e sent to the lab per the ordering physician specifications for further evaluation. The patient tolerated the procedure well with no complications. IMPRESSION: Successful lumbar puncture as outlined above. Opening pressure was 130 mm H20. Fluoroscopic time: 1.3 Number of fluoroscopic images: 1 Signer Name: Eyad Ndiaye Jr, MD Signed: 11/29/2019 10:33 AM Workstation Name: [id number]
[2019-11-29 10:55] LABS: Total Cells Counted 81 /mm3
[2019-11-29 10:56] LABS: Basophils CSF 0 %
[2019-11-29] MEDS: metFORMIN 500 MG TAB PO SCH ×2 (11:15→16:42)
[2019-11-29] MEDS: HEPARIN 5,000 UNIT/1 ML VIAL SUB-Q SCH (11:15)
[2019-11-29] MEDS: ASPIRIN 325 MG TAB PO SCH (11:15)
[2019-11-29] MEDS: METOCLOPRAMIDE 10 MG/2 ML INJ IV PRN (11:15)
--- NOTE | 2019-11-29 13:51 | Discharge Summary ---
Providers - Providers Date of Admission: 11/27/19 02:11 Date of discharge: 11/29/19 Attending physician: PAT ORTEGA 11/27/19 07:28 Consult to Case Management [CONS] Routine Services Needed at Discharge: Physical Therapy Notified:: case hardener Consult to Dietitian/Nutrition [CONS] Routine Physician Instructions: Reason For Exam: Reason for Consult: Nutrition Recommendations Reason for Consult: Diet education Occupational Therapy Evaluate and Treat [CONS] Routine Comment: Reason For Exam: Neuro deficits Physical Therapy Evaluation and Treat [CONS] Routine Comment: Reason For Exam: Neuro deficits 11/27/19 10:18 Consult to Physician [CONS] Routine Comment: Consulting Provider: SIMONE CRUZ Physician Instructions: Reason For Exam: headaches, ?status migrainous Primary care physician: RETAIL ADVISOR Hospitalization Condition: Stable Hospital course: Patient is a 39-year-old woman with a history of hypertension, DM type 2 and migraines headaches who presents to [facility] ED with severe frontal constant throbbing non radiating headache associated with n/v and flashes of light and left arm heaviness that started 1 day prior to arrival. She went to [facility] service and developed headaches, dizziness, AMS with memory issues and being foggy thinking. She believes it is a typical migraine headaches and she ran out her typical Loricet that started from [facility] ED 3 weeks ago. It appears no pharmacy have the Loricet. Also she has ran out of her bp medications for approximately 1 month ago but has been unable to fill her losartan because she has no insurance anymore. She is still taking metformin 1000 mg po bid. She denies trauma, chest pains, sob, new cough, syncope, fever, chills. The is not the worse headache of her lift and her neck is NOT stiff. 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 treated symptomatically, LP for opening pressure per Neurology Left arm weakness, most likely msk related: mri, echo, us carotid, mra head, all reviewed, treat with asa and statin ruled out TIA and ruled out CVA Malignant hypertension; drug and alcohol counselor on compliance, restart antihypertensives, ECHO 45-50%==>needs better intermediate bp control, iv hydralazine prn Acute metabolic encephalopathy as above, workup on going Morbid Obesity, bmi 47: drug and alcohol counselor on compliance Type 2 DM: ssi, ada diet, restart metformin DVT ppx: sq heparin Dispo: home Disposition: - TO HOME OR SELFCARE Time spent for discharge: 35 minutes Core Measure Documentation - Palliative Care Palliative Care/ Comfort Measures: Not Applicable - Core Measures Any of the following diagnoses?: none - VTE Discharge Requirements Deep Vein Thrombosis/Pulmonary Embolism Present on Admission: No Has pt received <5 days of overlap therapy or INR<2.0: No Anticoagulant overlap therapy prescribed at discharge: No Contraindication No Overlap Therapy order at DC: Not Indicated Exam - Physical Exam Narrative exam: Gen: morbid obese bmi 47.0, ill appearing with towel on forehead, leaning over trash can with Sour path candy and Nithya orange drink on her bed WDWN, NAD, Awake, Alert, Orientated x 3 HEENT: NCAT, EOMI, PERRL, OP Clear Neck: supple, no adenopathy, no thyromegaly, no JVD CVS/Heart: RRR, normal S1S2, pulses present bilaterally Chest/Lungs: tachypenic, CTA B, Symmetrical chest expansion, good air entry bilaterally GI/Abdomen: soft, NTND, good bowel sounds, no guarding or rebound /Bladder: no suprapubic tenderness, no CVA or paraspinal tenderness Extermity/Skin: no c/c/e, no obvious rash MSK: FROM x 4 Neuro: CN 2-12 grossly intact, new focal deficits, no drift Psych: calm - Constitutional Vitals: Temp Pulse Resp BP Pulse Ox 97.9 F 57 L 18 167/105 97 11/29/19 12:23 11/29/19 08:28 11/29/19 12:23 11/29/19 12:23 11/29/19 08:28 Plan Activity: other (no strenous activity) Diet: low salt Follow up with: [facility] [Provider Group] - 7 Days Prescriptions: amLODIPine 10 mg PO DAILY #30 tab Butalb/Acetamin/Caff 50-325-40 [Fioricet 50-325-40] 1 tab PO Q4H PRN #18 tablet PRN Reason: Headache HYDROcodone/APAP 10-325 [[place] 10-325 mg TAB] 1 each PO Q4H PRN #12 tablet PRN Reason: Pain , Severe (7-10)
--- NOTE | 2019-11-29 15:48 | Progress Note ---
Assessment and Plan Patient is a 39 woman with a history of hypertension, diabetes, migraines, who p/w left sided numbness/weakness, headache, dizziness. According the patient's clinical findings, it is possible the patient has had a TIA, or alternatively may have hypertensive emergency. Alternatively, the patient may also had a complicated migraine. MRI indicative of possible IIH, which would be supported with patient's symptoms of ISIDRO as well as obesity. Plan: 1. TIA vs. Hypertensive urgency: - MRI brain: no acute abnormality. Indicative of possible idiopathic intracranial hypertension. - MRA head/neck: unremarkable - Check MRI C-spine - Pending - CT head: no acute abnormality - Cont. ASA - Cont. statin - Cont. fioricet for migraine - PT/OT/ST - Echo: EF 45-50%, LA mildly dilated, bubble study negative. - Telemetry monitoring while in house - DVT Ppx: recommend lovenox. 2. Hypertension: - Recommend target normotension. 3. Possible Idiopathic Intracranial Hypertension: - MRI brain showed empty sella sign - Patient has h/o ISIDRO and obesity - CSF opening pressure was 13, therefore less likely to be IIH. - Will sign off as I am not covering neurology service over the weekend. Recommend to consult neurologist covering service over the weekend for further neurologic monitoring and management. Thank you for allowing me to take part in the care of this patient. Nitesh Esquivel MD Neurology Subjective Date of service: 11/29/19 Principal diagnosis: Hypertensive emergency Interval history: No acute events overnight. Objective - Exam Narrative Exam: Patient is awake, alert, oriented 4, follows complex commands. No dysarthria or aphasia noted. PERRL, EOMI, VFF, no facial weakness noted, decreased on left to LT, tongue midline. Noted to have 5/5 strength in LUE/LLE, 4/5 in LUE/LLE. Bilaterally intact to LT. Bilaterally intact to finger to nose and heel to kendrick . 2+ reflexes throughout. - Vital Sign Vital Signs - 12hr 11/29/19 11/29/19 11/29/19 04:00 04:18 07:42 Temperature 98.0 F Pulse Rate 62 64 Pulse Rate [ Apical] Pulse Rate [ From Monitor] Respiratory 18 20 Rate Respiratory Rate [Head] Blood Pressure 168/109 O2 Sat by Pulse 97 Oximetry 11/29/19 11/29/1911/29/20 08:05 08:28 10:00 Temperature 97.9 F Pulse Rate 57 L Pulse Rate [ 72 Apical] Pulse Rate [ 62 From Monitor] Respiratory 20 20 Rate Respiratory 20 Rate [Head] Blood Pressure 172/96 O2 Sat by Pulse 97 97 Oximetry 11/29/19 11/29/19 11/29/19 10:11 12:00 12:23 Temperature 97.9 F Pulse Rate 60 Pulse Rate [ Apical] Pulse Rate [ From Monitor] Respiratory 20 18 Rate Respiratory Rate [Head] Blood Pressure 167/105 O2 Sat by Pulse Oximetry - General Apperance Constitutional: comfortable - EENT EENT: ATNC, PERRL, mucous membranes moist, hearing intact, vision intact - Respiratory Respiratory: lungs clear, normal breath sounds - Cardiovascular Cardiovascular: regular rate, normal S1, normal S2 Extremities: no clubbing, cyanosis, no inflammation - Gastrointestinal Gastrointestinal: normoactive bowel sounds, soft, non-tender - Integumentary Integumentary: normal - Musculoskeletal Musculoskeletal: no fluid collection, no pain - Psychiatric Psychiatric: mood/affect appropriate - Laboratory Findings CBC and BMP: 11/27/19 00:40 11/27/19 00:40 Abnormal Lab Findings: Abnormal Labs 11/27/19 11/27/19 11/27/19 00:40 00:40 00:40 MCV 69 L MCH 21 L RDW 18.2 H [place] % (Auto) 9.0 H Thrombin Time 14.6 L Carbon Dioxide 20 L Glucose 139 H POC Glucose Hemoglobin A1c Total Creatine Kinase 266 H HDL Cholesterol 11/27/19 11/27/19 11/27/19 00:47 12:59 16:59 MCV MCH RDW [place] % (Auto) Thrombin Time Carbon Dioxide Glucose POC Glucose 128 H 173 H 148 H Hemoglobin A1c Total Creatine Kinase HDL Cholesterol 11/27/19 11/28/19 11/28/19 23:09 07:34 07:34 MCV MCH RDW [place] % (Auto) Thrombin Time Carbon Dioxide Glucose POC Glucose 129 H Hemoglobin A1c 7.1 H Total Creatine Kinase HDL Cholesterol 81 H 11/28/19 11/28/19 11/28/19 07:39 12:51 16:17 MCV MCH RDW [place] % (Auto) Thrombin Time Carbon Dioxide Glucose POC Glucose 138 H 118 H 117 H Hemoglobin A1c Total Creatine Kinase HDL Cholesterol 11/28/19 11/29/1911/29/20 21:05 08:42 12:07 MCV MCH RDW [place] % (Auto) Thrombin Time Carbon Dioxide Glucose POC Glucose 123 H 125 H 109 H Hemoglobin A1c Total Creatine Kinase HDL Cholesterol
[2019-11-29 19:32] VITALS: BP 184/88
--- NOTE | 2019-12-02 12:55 | Magnetic Resonance Report ---
MRI CERVICAL SPINE WITHOUT CONTRAST INDICATION / CLINICAL INFORMATION: Left sided numbness and weakness. TECHNIQUE: Multisequence, multiplanar images of the cervical spine were obtained. COMPARISON: None available. FINDINGS: CRANIOCERVICAL JUNCTION:No significant abnormality. ALIGNMENT: No significant abnormality. VERTEBRAE:Normal marrow signal and vertebral body height for age. VISUALIZED SPINAL CORD: No cord signal abnormality. [id number] ANALYSIS: C2-3: No significant disc abnormality, spinal canal stenosis, or neural foraminal stenosis. C3-4: No significant disc abnormality, spinal canal stenosis, or neural foraminal stenosis. C4-5: There is a small volume focal central disc protrusion causing focally moderate canal stenosis w ith slight contact and finding the ventral cord surface without associated cord signal abnormality. C5-6: No significant disc abnormality, spinal canal stenosis, or neural foraminal stenosis. C6-7: No significant disc abnormality, spinal canal stenosis, or neural foraminal stenosis. C7-T1: No significant disc abnormality, spinal canal stenosis, or neural foraminal stenosis. PARASPINAL SOFT TISSUES: No significant abnormality. ADDITIONAL FINDINGS: None. IMPRESSION: 1. Focal central disc protrusion at C4-5 resulting in local moderate central canal stenosis with mild contact and flattening the ventral cord surface without associated cord signal abnormality. 2. No additional significant abnormality. Signer Name: Antonio Salguero MD Signed: 11/28/2019 11:25 AM Workstation Name: [id number]
== END 2019-11-29 18:00 | disposition home or self-care (01) | DRG 102 ==
LOC: ED 23:48 → 4A 11-27 02:11
PROVIDERS: ADMIT Internal Medicine; ATTEND Internal Medicine
PROC: 009U3ZX Drainage of Spinal Canal, Percutaneous Approach, Diagnostic (ICD-10-PCS; principal; 2019-11-29)
PROC: B01B1ZZ Fluoroscopy of Spinal Cord using Low Osmolar Contrast (ICD-10-PCS; 2019-11-29)
DX: G43.901 Migraine, unspecified, not intractable, with status migrainosus (principal); G93.41 Metabolic encephalopathy; Z68.42 Body mass index [BMI] 45.0-49.9, adult; I10 Essential (primary) hypertension; E66.01 Morbid (severe) obesity due to excess calories; Z71.3 Dietary counseling and surveillance; Z88.5 Allergy status to narcotic agent; E11.9 Type 2 diabetes mellitus without complications
CPT/HCPCS: 36415; 62270; 70450; 70544; 70547; 70551; 72141; 77003; 80048; 80061; 82550; 82553; 82947; 82962; 83036; 84160; 84484; 84702; 85025; 85610; 85670; 85730; 89051; 93005; 93010; 93306; G0378; A9270-GY; J0360; J1644; J1885; J2405; J2765

== ENCOUNTER 2021-06-17 16:28 | Emergency (ER) | payer BC, OTHER ==
[2021-06-17] MEDS ORDERED: FAMOTIDINE 20 MG/2 ML INJ IV ONE (16:56)
[2021-06-17] MEDS ORDERED: CETIRIZINE 10 MG TAB PO ONE (16:56)
[2021-06-17] MEDS ORDERED: methylPREDNISolone Sod Succinate 125 MG/2 ML INJ IV ONE (16:56)
[2021-06-17] MEDS ORDERED: PENICILLIN G BENZATHINE 1.2 MILLION UNIT/2 ML INJ IM ONE ×2 (16:56→17:15)
--- NOTE | 2021-06-17 17:25 | Emergency Department Report ---
ED General Adult HPI - General Chief complaint: Medical Clearance Stated complaint: DOC REFERRAL/ FROM [facility] Time Seen by Provider: 06/17/21 16:32 Source: patient Mode of arrival: Ambulatory Limitations: No Limitations - History of Present Illness Initial comments: Chief complaint: Need treatment for latent syphilis HPI: This is a 41-year-old female with history of latent syphilis, diabetes mellitus, hypertension, BMI 49. She is followed by the [facility]. I spoke with Dr. Steven Al treating physician. Patient requires third dose of Bicillin LA for latent syphilis. Patient received first dose without incident. Last , patient received second dose of Bicillin LA. The day after she developed diffuse urticarial rash which improved with Benadryl. Patient has not had previous history of allergic reaction. She is currently symptom-free. Dr. Al desires patient to receive Bicillin in a supervised setting prepared to handle anticipated anaphylaxis. -: week(s) (Last week patient had allergic reaction to penicillin, diffuse urticaria.) Location: chest, abdomen, left, right, upper extremity Consistency: now resolved Improves with: none Worsens with: medication Associated Symptoms: denies other symptoms - Related Data Home Medications Medication Instructions Recorded Confirmed Last Taken Empagliflozin (Nf) [Jardiance (Nf)] 10 mg PO QDAY 02/05/16 11/27/19 Unknown Previous Rx's Medication Instructions Recorded Last Taken Type hydroCHLOROthiazide [HCTZ] 12.5 mg PO QDAY #30 capsule 02/05/16 Unknown Rx Acetaminophen [Acetaminophen TAB] 1 tab PO Q4H PRN #15 tablet 11/29/19 Unknown Rx Butalb/Acetamin/Caff 50-325-40 1 tab PO Q4H PRN #18 tablet 11/29/19 Unknown Rx [Fioricet 50-325-40] HYDROcodone/APAP 10-325 [[place] 1 each PO Q4H PRN #12 tablet 11/29/19 Unknown Rx 10-325 mg TAB] Melatonin [Melatonin 5MG TAB] 10 mg PO QHS PRN #10 tablet 11/29/19 Unknown Rx amLODIPine 10 mg PO DAILY #30 tab 11/29/19 Unknown Rx metFORMIN [Glucophage] 1,000 mg PO BIDDIAB tablet 11/29/19 Unknown Rx Allergies Allergy/AdvReac Type Severity Reaction Status Date / Time morphine Allergy Dizziness Verified 06/17/21 16:32 ED Review of Systems ROS: Stated complaint: DOC REFERRAL/ FROM [facility] Other details as noted in HPI Comment: All other systems reviewed and negative Respiratory: denies: cough, shortness of breath Cardiovascular: denies: chest pain Gastrointestinal: denies: abdominal pain Skin: rash, lesions ED Past Medical Hx - Past Medical History Previous Medical History?: Yes Hx Hypertension: Yes Hx Diabetes: Yes Additional medical history: LATENT SYPLLIS - Surgical History Past Surgical History?: Yes Hx Cholecystectomy: Yes - Social History Smoking Status: Never Smoker Substance Use Type: None - Medications Home Medications: Home Medications Medication Instructions Recorded Confirmed Last Taken Type Empagliflozin (Nf) [Jardiance (Nf)] 10 mg PO QDAY 02/05/16 11/27/19 Unknown History hydroCHLOROthiazide [HCTZ] 12.5 mg PO QDAY #30 capsule 02/05/16 11/27/19 Unknown Rx Acetaminophen [Acetaminophen TAB] 1 tab PO Q4H PRN #15 tablet 11/29/19 Unknown Rx Butalb/Acetamin/Caff 50-325-40 1 tab PO Q4H PRN #18 tablet 11/29/19 Unknown Rx [Fioricet 50-325-40] HYDROcodone/APAP 10-325 [[place] 1 each PO Q4H PRN #12 tablet 11/29/19 Unknown Rx 10-325 mg TAB] Melatonin [Melatonin 5MG TAB] 10 mg PO QHS PRN #10 tablet 11/29/19 Unknown Rx amLODIPine 10 mg PO DAILY #30 tab 11/29/19 Unknown Rx metFORMIN [Glucophage] 1,000 mg PO BIDDIAB tablet 11/29/19 Unknown Rx ED Physical Exam - General Limitations: No Limitations General appearance: alert, in no apparent distress, other (Pleasant, appears comfortable) - Head Head exam: Present: atraumatic, normocephalic - Eye Eye exam: Present: normal appearance - ENT ENT exam: Present: mucous membranes moist - Neck Neck exam: Present: normal inspection, full ROM - Respiratory Respiratory exam: Present: normal lung sounds bilaterally. Absent: respiratory distress, wheezes, rales, rhonchi, stridor - Cardiovascular Cardiovascular Exam: Present: regular rate, normal rhythm, normal heart sounds. Absent: systolic murmur, diastolic murmur, rubs, gallop - GI/Abdominal GI/Abdominal exam: Present: soft, normal bowel sounds. Absent: distended, tenderness, guarding, rebound - Extremities Exam Extremities exam: Present: normal inspection - Neurological Exam Neurological exam: Present: alert, oriented X3 - Psychiatric Psychiatric exam: Present: normal affect, normal mood - Skin Skin exam: Present: warm, dry, intact, normal color. Absent: rash ED Course Vital Signs 06/17/21 16:37 Temperature 98.9 F Pulse Rate 61 Respiratory 20 Rate Blood Pressure 163/99 O2 Sat by Pulse 98 Oximetry ED Medical Decision Making - Medical Decision Making Clinical impression: Hypersensitivity allergic reaction to Bicillin LA, patient requires complete treatment for latent syphilis . patient was pretreated with cetirizine, IV Solu-Medrol, IV famotidine. Patient understands to return to emergency department if she develops rash, breath or oropharyngeal swelling. Critical care attestation.: If time is entered above; I have spent that time in minutes in the direct care of this critically ill patient, excluding procedure time. ED Disposition Clinical Impression: Latent syphilis, Penicillin allergy Disposition: DC-01 TO HOME OR SELFCARE Is pt being admited?: No Does the pt Need Aspirin: No Condition: Stable Instructions: Drug Allergy, [id number]
[2021-06-17 18:20] VITALS: BP 158/76
== END 2021-06-17 18:18 | disposition home or self-care (01) ==
LOC: ED 16:28
DX: R21 Rash and other nonspecific skin eruption (principal); T36.0X5A Adverse effect of penicillins, initial encounter; A53.0 Latent syphilis, unspecified as early or late; I10 Essential (primary) hypertension; E11.9 Type 2 diabetes mellitus without complications; Z90.49 Acquired absence of other specified parts of digestive tract; Z79.84 Long term (current) use of oral hypoglycemic drugs; Z79.899 Other long term (current) drug therapy; Z88.8 Allergy status to other drugs, medicaments and biological substances; Y92.89 Other specified places as the place of occurrence of the external cause
CPT/HCPCS: 96372; 96374; 96375; 99282; J0561; J2930

== ENCOUNTER 2022-02-04 13:48 | Emergency (ER) | payer SELFPAY | END 2022-02-04 19:06 | disposition left against medical advice (07) | LOC: ED 13:48 | DX: R56.9 Unspecified convulsions (principal); Z53.21 Procedure and treatment not carried out due to patient leaving prior to being seen by health care provider ==

== ENCOUNTER 2022-08-07 09:29 | Emergency (ER) | payer SELFPAY ==
[2022-08-07] MEDS ORDERED: ASPIRIN 325 MG TAB PO ONE (09:34)
--- NOTE | 2022-08-07 10:05 | XRay Report ---
CHEST 2 VIEWS INDICATION / CLINICAL INFORMATION: chest pain. COMPARISON: Chest CT 10/19/2008 FINDINGS: SUPPORT DEVICES: None. HEART / MEDIASTINUM: No significant abnormality. LUNGS / PLEURA: No significant pulmonary or pleural abnormality. No pneumothorax. ADDITIONAL FINDINGS: No significant additional findings. IMPRESSION: 1. No acute findings. Signer Name: Lefty Betts MD Signed: 08/07/2022 10:01 AM Workstation Name: [email or web address]
[2022-08-07 11:24] LABS: Basophils % (Auto) 0.4 % (0.0-1.8); Eosinophils % (Auto) 0.7 % (0.0-4.3); Hematocrit 33.4 % (30.3-42.9); Hemoglobin 10.5 gm/dl (10.1-14.3); Lymphocytes # (Auto) 1.7 K/mm3 (1.2-5.4); Lymphocytes % (Auto) 34.2 % (13.4-35.0); Mean Corpuscular HGB Conc 32 % (30-34); Mean Corpuscular Volume 73 fl (79-97); Monocytes # (Auto) 0.5 K/mm3 (0.0-0.8); Monocytes % (Auto) 10.3 % (0.0-7.3); Platelet Count 312 K/mm3 (140-440); Red Blood Count 4.59 M/mm3 (3.65-5.03); Red Cell Distribution Width 16.8 % (13.2-15.2)
[2022-08-07 11:27] LABS: Alanine Aminotransferase 11 units/L (7-56); Albumin 4.2 g/dL (3.9-5); Blood Urea Nitrogen 10 mg/dL (7-17); Calcium 9.3 mg/dL (8.4-10.2); Hemolysis Index 3
[2022-08-07 11:28] LABS: BUN/Creatinine Ratio 17
[2022-08-08 03:57] VITALS: BP 174/77
--- NOTE | 2022-08-08 03:57 | Emergency Department Report ---
ED General Adult HPI - General Chief complaint: Chest Pain Stated complaint: CHEST PAIN/BLOOD SUGAR Time Seen by Provider: 08/08/22 03:50 Source: patient Mode of arrival: Ambulatory Limitations: No Limitations - History of Present Illness Initial comments: 42-year-old female past medical history hypertension diabetes reports to the ER with complaints of chest pain with no radiation to any other parts of the body.. Patient reports started to experience chest pain around 6:00 in the morning while she was at work. Patient denies shortness of breath. Patient reports she has been out of her blood pressure medication losartan 20 mg with hydrochloroth iazide 25 mg for about almost 2 weeks. No numbness no tingling no dizziness noted. No other acute signs noted. - Related Data Home Medications Medication Instructions Recorded Confirmed Last Taken Empagliflozin (Nf) [Jardiance (Nf)] 10 mg PO QDAY 02/05/16 11/27/19 Unknown Previous Rx's Medication Instructions Recorded Last Taken Type hydroCHLOROthiazide [HCTZ] 12.5 mg PO QDAY #30 capsule 02/05/16 Unknown Rx Acetaminophen [Acetaminophen TAB] 1 tab PO Q4H PRN #15 tablet 11/29/19 Unknown Rx Butalb/Acetamin/Caff 50-325-40 1 tab PO Q4H PRN #18 tablet 11/29/19 Unknown Rx [Fioricet 50-325-40] HYDROcodone/APAP 10-325 [[place] 1 each PO Q4H PRN #12 tablet 11/29/19 Unknown Rx 10-325 mg TAB] Melatonin [Melatonin 5MG TAB] 10 mg PO QHS PRN #10 tablet 11/29/19 Unknown Rx amLODIPine 10 mg PO DAILY #30 tab 11/29/19 Unknown Rx metFORMIN [Glucophage] 1,000 mg PO BIDDIAB tablet 11/29/19 Unknown Rx Insulin NPH Hum/Reg Insulin Hm 28 unit SQ BID 30 Days #1 vial 08/08/22 Unknown Rx [Novolin 70-30 100 Unit/ml Vial] Losartan/Hydrochlorothiazide 1 each PO DAILY 30 Days #30 tab 08/08/22 Unknown Rx [Losartan-Hctz 50-12.5 mg Tab] Allergies Allergy/AdvReac Type Severity Reaction Status Date / Time morphine Allergy Dizziness Verified 06/17/21 16:32 ED Review of Systems ROS: Stated complaint: CHEST PAIN/BLOOD SUGAR Other details as noted in HPI Comment: All other systems reviewed and negative Respiratory: denies: shortness of breath Cardiovascular: chest pain ED Past Medical Hx - Past Medical History Previous Medical History?: Yes Hx Hypertension: Yes Hx Diabetes: Yes Additional medical history: LATENT SYHPLLIS - Surgical History Past Surgical History?: Yes Hx Cholecystectomy: Yes - Social History Smoking Status: Never Smoker Substance Use Type: None - Medications Home Medications: Home Medications Medication Instructions Recorded Confirmed Last Taken Type Empagliflozin (Nf) [Jardiance (Nf)] 10 mg PO QDAY 02/05/16 11/27/19 Unknown History hydroCHLOROthiazide [HCTZ] 12.5 mg PO QDAY #30 capsule 02/05/16 11/27/19 Unknown Rx Acetaminophen [Acetaminophen TAB] 1 tab PO Q4H PRN #15 tablet 11/29/19 Unknown Rx Butalb/Acetamin/Caff 50-325-40 1 tab PO Q4H PRN #18 tablet 11/29/19 Unknown Rx [Fioricet 50-325-40] HYDROcodone/APAP 10-325 [[place] 1 each PO Q4H PRN #12 tablet 11/29/19 Unknown Rx 10-325 mg TAB] Melatonin [Melatonin 5MG TAB] 10 mg PO QHS PRN #10 tablet 11/29/19 Unknown Rx amLODIPine 10 mg PO DAILY #30 tab 11/29/19 Unknown Rx metFORMIN [Glucophage] 1,000 mg PO BIDDIAB tablet 11/29/19 Unknown Rx Insulin NPH Hum/Reg Insulin Hm 28 unit SQ BID 30 Days #1 vial 08/08/22 Unknown Rx [Novolin 70-30 100 Unit/ml Vial] Losartan/Hydrochlorothiazide 1 each PO DAILY 30 Days #30 tab 08/08/22 Unknown Rx [Losartan-Hctz 50-12.5 mg Tab] ED Physical Exam - General Limitations: No Limitations General appearance: alert, in no apparent distress - Head Head exam: Present: atraumatic, normocephalic - Eye Eye exam: Present: normal appearance - ENT ENT exam: Present: mucous membranes moist - Neck Neck exam: Present: normal inspection - Respiratory Respiratory exam: Present: normal lung sounds bilaterally. Absent: respiratory distress - Cardiovascular Cardiovascular Exam: Present: regular rate, normal rhythm. Absent: systolic murmur, diastolic murmur, rubs, gallop - GI/Abdominal GI/Abdominal exam: Present: soft, normal bowel sounds - Extremities Exam Extremities exam: Present: normal inspection - Back Exam Back exam: Present: normal inspection - Neurological Exam Neurological exam: Present: alert, oriented X3 - Psychiatric Psychiatric exam: Present: normal affect, normal mood - Skin Skin exam: Present: warm, dry, intact, normal color. Absent: rash ED Course Vital Signs 08/08/22 03:57 Temperature 98.0 F Pulse Rate 61 Respiratory 16 Rate Blood Pressure 174/77 [Left] O2 Sat by Pulse 98 Oximetry ED Medical Decision Making - Lab Data Result diagrams: 08/07/22 10:38 08/07/22 10:38 - Medical Decision Making 42-year-old female past medical history hypertension diabetes reports to the ER with complaints of chest pain with no radiation to any other parts of the body.. Patient reports started to experience chest pain around 6:00 in the morning while she was at work. Patient denies shortness of breath. Patient reports she has been out of her blood pressure medication losartan 20 mg with hydrochlorothiazide 25 mg for about almost 2 weeks. No numbness no tingling no dizziness noted. No other acute signs noted. No acute findings on physical exam. Patient reports a decrease in chest pain since her stay here in the ER. Labs are unremarkable. Troponin x3 are negative. EKG sinus with no acute process noted. Chest ray unremarkable with no acute process noted. Patient informed of her x-ray and lab reports. Patient informed to follow her primary care provider for management of her diabetes and hypertension. Patient given refill for her blood pressure medication. Patient encouraged to get her blood pressure medication diabetic medication refill prior to running out of her medicines. Patient agrees with plan of care and verbalized understanding. Patient stable for discharge home. No further evaluation is needed at this time. Patient informed if her symptoms are to get worse to report back to the ER. Vital Signs 08/08/22 03:57 Temperature 98.0 F Pulse Rate 61 Respiratory 16 Rate Blood Pressure 174/77 [Left] O2 Sat by Pulse 98 Oximetry Lab Results 08/07/22 08/07/22 08/07/22 Range/Units 10:38 10:38 14:50 WBC 5.0 (4.5-11.0) K/mm3 RBC 4.59 (3.65-5.03) M/mm3 Hgb 10.5 (10.1-14.3) gm/dl Hct 33.4 (30.3-42.9) % MCV 73 L (79-97) fl MCH 23 L (28-32) pg MCHC 32 (30-34) % RDW 16.8 H (13.2-15.2) % Plt Count 312 (140-440) K/mm3 Lymph % (Auto) 34.2 (13.4-35.0) % Braxton % (Auto) 10.3 H (0.0-7.3) % Eos % (Auto) 0.7 (0.0-4.3) % Baso % (Auto) 0.4 (0.0-1.8) % Lymph # (Auto) 1.7 (1.2-5.4) K/mm3 Braxton # (Auto) 0.5 (0.0-0.8) K/mm3 Eos # (Auto) 0.0 (0.0-0.4) K/mm3 Baso # (Auto) 0.0 (0.0-0.1) K/mm3 Seg Neutrophils % 54.4 (40.0-70.0) % Seg Neutrophils # 2.7 (1.8-7.7) K/mm3 Sodium 137 (137-145) mmol/L Potassium 4.2 (3.6-5.0) mmol/L Chloride 101.8 (98-107) mmol/L Carbon Dioxide 23 (22-30) mmol/L Anion Gap 16 mmol/L BUN 10 (7-17) mg/dL Creatinine 0.6 (0.6-1.2) mg/dL Estimated GFR > 60 ml/min BUN/Creatinine Ratio 17 % Glucose 142 H (65-100) mg/dL POC Glucose (70-105) mg/dL Calcium 9.3 (8.4-10.2) mg/dL Total Bilirubin 0.30 (0.1-1.2) mg/dL AST 11 (5-40) units/L ALT 11 (7-56) units/L Alkaline Phosphatase 88 (35-129) units/L Troponin T < 0.010 < 0.010 (0.00-0.029) ng/mL Total Protein 7.2 (6.3-8.2) g/dL Albumin 4.2 (3.9-5) g/dL Albumin/Globulin Ratio 1.4 % 08/07/22 08/08/22 Range/Units 20:01 03:29 WBC (4.5-11.0) K/mm3 RBC (3.65-5.03) M/mm3 Hgb (10.1-14.3) gm/dl Hct (30.3-42.9) % MCV (79-97) fl MCH (28-32) pg MCHC (30-34) % RDW (13.2-15.2) % Plt Count (140-440) K/mm3 Lymph % (Auto) (13.4-35.0) % Braxton % (Auto) (0.0-7.3) % Eos % (Auto) (0.0-4.3) % Baso % (Auto) (0.0-1.8) % Lymph # (Auto) (1.2-5.4) K/mm3 Braxton # (Auto) (0.0-0.8) K/mm3 Eos # (Auto) (0.0-0.4) K/mm3 Baso # (Auto) (0.0-0.1) K/mm3 Seg Neutrophils % (40.0-70.0) % Seg Neutrophils # (1.8-7.7) K/mm3 Sodium (137-145) mmol/L Potassium (3.6-5.0) mmol/L Chloride (98-107) mmol/L Carbon Dioxide (22-30) mmol/L Anion Gap mmol/L BUN (7-17) mg/dL Creatinine (0.6-1.2) mg/dL Estimated GFR ml/min BUN/Creatinine Ratio % Glucose (65-100) mg/dL POC Glucose 164 H (70-105) mg/dL Calcium (8.4-10.2) mg/dL Total Bilirubin (0.1-1.2) mg/dL AST (5-40) units/L ALT (7-56) units/L Alkaline Phosphatase (35-129) units/L Troponin T < 0.010 (0.00-0.029) ng/mL Total Protein (6.3-8.2) g/dL Albumin (3.9-5) g/dL Albumin/Globulin Ratio % Critical care attestation.: If time is entered above; I have spent that time in minutes in the direct care of this critically ill patient, excluding procedure time. ED Disposition Clinical Impression: Medication refill Chest pain Qualifiers: Chest pain type: other chest pain Qualified Code(s): R07.89 - Other chest pain Disposition: HOME / SELF CARE / HOMELESS Is pt being admited?: No Condition: Stable Instructions: Nonspecific Chest Pain, Adult Prescriptions: Losartan/Hydrochlorothiazide [Losartan-Hctz 50-12.5 mg Tab] 1 each PO DAILY 30 Days #30 tab Insulin NPH Hum/Reg Insulin Hm [Novolin 70-30 100 Unit/ml Vial] 28 unit SQ BID 30 Days #1 vial Referrals: [facility] [Outside] - 3-5 Days [facility] [Outside] - 3-5 Days Forms: Work/School Release Form(ED)
--- NOTE | 2022-08-09 09:53 | Electrocardiograph Report ---
[facility] Test Date: 2022-08-07 Test Time: 09:39:46 Pat Name: DIANE ARREDONDO Department: Room: Gender: F Surgical Training Specialist: RENETTA : 1980 Requested By: ED DOC Order Number: [id number] Reading MD: Topher Madison Measurements Intervals Gallion Rate: 53 P: 43 SC: 170 QRS: -18 QRSD: 91 T: 51 QT: 456 QTc: 427 Interpretive Statements Sinus rhythm No previous ECG available for comparison Electronically Signed On 08-09-2022 9:53:34 EDT by Topher Madison
== END 2022-08-08 04:51 | disposition home or self-care (01) ==
LOC: ED 09:29
DX: R07.9 Chest pain, unspecified (principal); Z76.0 Encounter for issue of repeat prescription; I10 Essential (primary) hypertension; E11.9 Type 2 diabetes mellitus without complications; Z90.49 Acquired absence of other specified parts of digestive tract; Z91.09 Other allergy status, other than to drugs and biological substances
CPT/HCPCS: 36415; 71046; 80053; 82962; 84484; 85025; 93005; 99283